=== PATIENT | male | born 1955 | race Caucasian/White ===

== ENCOUNTER 2017-01-14 11:31 | Emergency (ER) | payer SELFPAY ==
[~2017-01-14] VITALS: Ht 167.6 cm; Wt 68.0 kg
--- NOTE | 2017-01-14 11:32 | NUR ---
Patient to ER bed 07 to gown for evaluation. Side rails up.
--- NOTE | 2017-01-14 11:32 | NUR ---
Pt brought by BLS, A&O x4, pt c/o LAC on R pinky finger bleeding controlled, VS WNL, skin pink and warm,cap refill <3.
--- NOTE | 2017-01-14 11:32 | NUR ---
Note saranya in EDM - 01/14/17 at 1152 by [email or web address] Pt brought by BLS, A&O x4, pt c/o LAC on L pinky finger bleeding controlled, VS WNL, skin pink and warm,cap refill <3.
[2017-01-14 11:40] VITALS: BP_SYST 147
--- NOTE | 2017-01-14 11:40 | NUR ---
PT PAIN L REPORTS INDEX FINGER S/P LACERATION FROM SLICER.
--- NOTE | 2017-01-14 12:00 | NUR ---
ER at bedside examining patient.
[2017-01-14] MEDS ORDERED: DIPH-TET-PERTUS Vaccine 0.5 ML VIAL (ADACEL) I.M. ONE (12:30)
[2017-01-14] MEDS ORDERED: BACITRACIN 1 GM OINT TP ONE (12:30)
--- NOTE | 2017-01-14 12:30 | NUR ---
Pt tolerated wound care well.
[2017-01-14 13:12] VITALS: BP_SYST 147
--- NOTE | 2017-01-14 13:12 | NUR ---
Patient given written and verbal discharge instructions and verbalizes understanding. ER MD discussed with patient the results and treatment provided. Patient in stable condition. ID arm band removed. Rx of NORCO given. Patient educated on pain management and to follow up with PMD. Pain Scale 2 Opportunity for questions provided and answered.
== END 2017-01-14 13:12 | disposition home or self-care (01) ==
LOC: SED 11:31
DX: S61.306A Unspecified open wound of right little finger with damage to nail, initial encounter (principal); Z88.8 Allergy status to other drugs, medicaments and biological substances; W26.0XXA Contact with knife, initial encounter; Y93.89 Activity, other specified; Y92.511 Restaurant or cafe as the place of occurrence of the external cause; Y99.8 Other external cause status
CPT/HCPCS: 90715; 99283